=== PATIENT | female | born 1965 | race Caucasian/White ===

== ENCOUNTER → 2020-02-27 | Day surgery (SDC) | payer MEDICARE, OTHER ==
[~2020-02-27] MED LIST: BENTYL 20MG TAB20 MG PO; CELEXA 20MG TAB20 MG PO; FISH OIL 1,0001 EACH PO; FLONASE ALLER15.8 ML; GABAPENTIN300 MG PO; GLUCOPHAGE XR500 M1 PO; LAMOTRIGINE100 MG PO; LEVOTHYROXINE100 MCG PO; LISINOPRIL40 MG PO; LORTAB 5-325 M1 EACH PO; NYSTOP60 GM TP; VITAMIN D325 MCG PO
[2020-02-27 07:32] LABS: HEMOGLOBIN 14.2 gm/dl (12.3-15.3); RED BLOOD COUNT 4.45 M/UL (4.00-5.10); WHITE BLOOD COUNT 7.8 K/UL (4.5-11.0)
== END | disposition home or self-care (01) ==
LOC: OR 06:50
PROVIDERS: Anesthesiology Pain Medicine
DX: G89.29 Other chronic pain (principal); M54.5 Low back pain; M79.605 Pain in left leg; M79.604 Pain in right leg; M50.222 Other cervical disc displacement at C5-C6 level; M51.36 Other intervertebral disc degeneration, lumbar region; M48.07 Spinal stenosis, lumbosacral region; I10 Essential (primary) hypertension; G47.33 Obstructive sleep apnea (adult) (pediatric); E78.2 Mixed hyperlipidemia; E66.01 Morbid (severe) obesity due to excess calories; F31.9 Bipolar disorder, unspecified; E11.9 Type 2 diabetes mellitus without complications; E07.9 Disorder of thyroid, unspecified; Z68.42 Body mass index [BMI] 45.0-49.9, adult; Z99.89 Dependence on other enabling machines and devices; Z79.891 Long term (current) use of opiate analgesic; Z79.84 Long term (current) use of oral hypoglycemic drugs; Z79.899 Other long term (current) drug therapy
CPT/HCPCS: 36415; 71045; 76000; 80048; 81001; 82962; 85025; 93005; C1778; C1787; C1820; J0690; J0696; J1100; J1956; J2001; J2250; J2405; J2704; J3010; J7030; J7120

== ENCOUNTER → 2020-03-18 | Outpatient (CLI) | payer MEDICARE, OTHER ==
[2020-03-19 08:14] LABS: HIV SCREEN 4TH GENERATION WRFX Non Reactive (Non Reactive)
[2020-03-19 10:14] LABS: HBSAG SCREEN Negative (Negative); HCV ANTIBODY <0.1 (0.0-0.9); HEP A AB, IGM Negative (Negative); HEP B CORE AB, IGM Positive (Negative); HEPATITIS B SURF AB QUANT 180.2 mIU/mL (Immunity>9.9)
== END ==
LOC: LAB 10:25
PROVIDERS: Anesthesiology Pain Medicine
DX: T14.90XA Injury, unspecified, initial encounter (principal); N39.0 Urinary tract infection, site not specified; R53.83 Other fatigue; W46.1XXA Contact with contaminated hypodermic needle, initial encounter
CPT/HCPCS: 36415; 80074; 81001; 86317; 86803; 87389